=== PATIENT | male | born 1965 | race Caucasian/White ===

== ENCOUNTER 2019-07-20 06:56 | Outpatient (CLI) | payer BC ==
--- NOTE | 2019-07-20 08:36 | ULT ---
HEPATIC DUPLEX ULTRASOUND INCLUDING COLOR AND SPECTRAL DOPPLER IMAGING: HISTORY: Chronic viral hepatitis C. FINDINGS: Borderline-size liver which is somewhat echogenic, evidence for some fatty change. Common bile duct 0.5 cm. Visualized pancreas and right kidney are unremarkable. Spleen is within normal limits. Vascular duplex with hepatic venous and portal venous flow being antegrade. IMPRESSION: Increased liver echogenicity. Antegrade hepatic and portal venous flow. No ductal dilatation. No e vidence of gallstones. POS: [facility]
== END 2019-07-20 06:57 | disposition home or self-care (01) ==
LOC: ULT 06:56
PROVIDERS: ATTEND Internal Medicine Gastroenterology
DX: B18.2 Chronic viral hepatitis C (principal); Z12.11 Encounter for screening for malignant neoplasm of colon; K21.9 Gastro-esophageal reflux disease without esophagitis; R05 Cough; R93.2 Abnormal findings on diagnostic imaging of liver and biliary tract
CPT/HCPCS: 76705

== ENCOUNTER 2020-09-25 10:35 | Emergency (ER) | payer BC ==
[2020-09-25] MEDS ORDERED: Iopamidol-370 76% 500 ML 1 ML ONE (10:36)
[2020-09-25 11:20] LABS: #Eosinphils 0.4 thou/uL (0.0-0.7); #Neutrophils 9.2 thou/uL (1.40-6.50); %Basophils 0.2 % (0.0-1.0); %Eosinophils 3.2 % (0.0-10.0); %Lymphocytes 15.9 % (21.0-51.0); %Monocytes 7.6 % (0.0-10.0); %Neutrophils 73.1 % (42.0-75.0); Hemoglobin 17.1 g/dL (14.0-18.0); Mean Corpuscular HGB CONC 32.8 g/dL (32.0-36.0); Mean Corpuscular Hemoglobin 31.2 pg (27.0-31.0); Mean Corpuscular Volume 95.1 fL (78.0-98.0); Mean Platelet Volume 9.2 fL (7.4-10.4); Platelet Count 222 thou/uL (130-400); Red Blood Cell (RBC) Count 5.49 mill/uL (4.70-6.10); White Blood Cell (WBC) Count 12.6 thou/uL (4.8-10.8)
[2020-09-25] MEDS ORDERED: Morphine 4 MG/ML VIAL ONE (11:47)
[2020-09-25] MEDS ORDERED: Ondansetron PF 4 MG/2 ML Vial ONE (11:47)
[2020-09-25 11:53] LABS: ALT (SGPT) 17 U/L (8-55); AST (SGOT) 13 U/L (5-34); Albumin 4.1 g/dL (3.5-5.0); Alkaline Phosphatase 50 U/L (40-110); Anion Gap 11 mmol/L (10-20); BUN (Urea Nitrogen) 10 mg/dL (8.4-25.7); Bilirubin, Total 1.2 mg/dL (0.2-1.2); Calc. Creatinine Clearance 0 mL/min (70-130); Calcium 9.3 mg/dL (7.8-10.44); Carbon Dioxide 28 mmol/L (22-29); Chloride 104 mmol/L (98-107); Globulin 2.8 g/dL (2.4-3.5); Glucose 107 mg/dL (70-105); Lipase 13 U/L (8-78); Potassium 3.9 mmol/L (3.5-5.1); Protein, Total 6.9 g/dL (6.0-8.3); Sodium 139 mmol/L (136-145)
[2020-09-25] MEDS ORDERED: Amoxicillin/Potassium Clav 875 MG TAB ONE (12:49)
== END 2020-09-25 12:50 | disposition home or self-care (01) ==
LOC: ERS 10:35
DX: K57.32 Diverticulitis of large intestine without perforation or abscess without bleeding (principal)
CPT/HCPCS: 74177; 80053; 83690; 85025; 96374; 96375; J2270; J2405; Q9967

== ENCOUNTER 2023-07-04 16:00 | Outpatient (CLI) | payer BC | END 2023-07-04 16:01 | disposition home or self-care (01) | LOC: SLEEPLAB 16:00 | PROVIDERS: ATTEND Registered Nurse | DX: G47.33 Obstructive sleep apnea (adult) (pediatric) (principal); E66.9 Obesity, unspecified; K21.9 Gastro-esophageal reflux disease without esophagitis; Z68.32 Body mass index [BMI] 32.0-32.9, adult | CPT/HCPCS: 95810 ==

== ENCOUNTER 2025-03-23 14:42 | Outpatient (CLI) | payer BC | END 2025-03-23 14:43 | disposition home or self-care (01) | LOC: BICMRI 14:42 | PROVIDERS: ATTEND Orthopaedic Surgery | DX: S46.011A Strain of muscle(s) and tendon(s) of the rotator cuff of right shoulder, initial encounter (principal); T15.90XA Foreign body on external eye, part unspecified, unspecified eye, initial encounter; M67.813 Other specified disorders of tendon, right shoulder; R60.9 Edema, unspecified; S43.401A Unspecified sprain of right shoulder joint, initial encounter | CPT/HCPCS: 70210 ==